=== PATIENT | male | born 1965 | race Caucasian/White ===

== ENCOUNTER 2017-09-01 05:32 | Inpatient (IN) | payer OTHER ==
[2017-09-01] VITALS (8 sets, daily range): BP systolic 131–153; BP diastolic 67–90; PULSE 83–103; TEMP 36.6–37; O2SAT 91–94; Ht 188 cm; Wt 119.3 kg
[~2017-09-01] VITALS: Ht 188 cm; Wt 119.3 kg
[~2017-09-01 05:32] MED LIST: ATEN-173 PO; BUPR-79 PO; CYCL10TA6 PO; FLUT0.15 NAE; HYDR-3983 PO; OXYC1TAB3 PO; PRLSR20 PO
[2017-09-01] MEDS ORDERED: MoRPHine SULFATE 4 MG/ML 1 ML CARP\\VIAL IV STA ×2 (05:46→07:02)
[2017-09-01] MEDS ORDERED: ONDANSETRON INJ 2 MG/ML 2 ML VIAL IV STA ×2 (05:46→09:45)
[2017-09-01] MEDS ORDERED: SODIUM CHLORIDE 0.9% 1000ML 1,000 ML IV STA ×2 (05:46)
[2017-09-01] MEDS ORDERED: OPTIRAY 320 IV PRN (06:00)
[2017-09-01 06:10] LABS: BASO % 0.2 %; BASO ABS # 0.03 K/uL (0-0.2); COMPLETE YES; EOS % 0.3 %; IG% 0.5 %; LYMPH % 11.4 %; LYMPH ABS # 2.05 K/uL (1.2-3.4); MEAN CELL VOLUME 85.9 fL (80-100); MEAN CORPUSCULAR HEMOGLOBIN 29.7 pg (25-34); MEAN CORPUSCULAR HGB CONC 34.6 g/dl (32-36); MEAN PLATELET VOLUME 9.8 fL (7.4-10.4); NEUT % 81.6 %; PLATELET COUNT 226 K/uL (130-400); RED BLOOD COUNT 5.59 M/uL (4.7-6.1); WHITE BLOOD COUNT 17.92 K/uL (4.8-10.8)
[2017-09-01 06:11] LABS: ISTAT CREATININE 0.9 mg/dl (0.6-1.3); ISTAT HEMOGLOBIN 16.7 g/dl (14.0-18.0); ISTAT IONIZED CALCIUM 1.12 mmol/l (1.12-1.32)
[2017-09-01 06:36] LABS: ALKALINE PHOSPHATASE 92 U/L (45-117); ALT/SGPT 31 U/L (12-78); BLOOD UREA NITROGEN 13 mg/dl (7-18); BUN/CREATININE RATIO 13.9 (10-20); CALCIUM 8.6 mg/dl (8.5-10.1); CARBON DIOXIDE 23 mmol/L (21-32); CHLORIDE 106 mmol/L (98-107); CREATININE 0.95 mg/dl (0.60-1.40); GLUCOSE 181 mg/dl (70-99); SODIUM 138 mmol/L (136-145)
--- NOTE | 2017-09-01 06:36 | DIAGNOSTIC IMAGING REPORT ---
CHEST ONE VIEW PORTABLE CLINICAL HISTORY: Atypical chest pain COMPARISON STUDY: 12/16/2013 FINDINGS: The heart is mildly enlarged. There is radiographic evidence of emphysema. There are right basal airspace opacities. Clinical correlation regards to a pneumonia is recommended. There is no significant pleural fluid. There is no failure.[ IMPRESSION: Right basal airspace opacities. This could represent a pneumonia. Clinical and radiographic follow-up is recommended. Electronically signed by: Riccardo Kerr M.D. 09/01/2017 6:34 AM Dictated Date/Time: 09/01/2017 6:34 AM
[2017-09-01 07:18] LABS: POTASSIUM 4.5 mmol/L (3.5-5.1)
--- NOTE | 2017-09-01 07:27 | DIAGNOSTIC IMAGING REPORT ---
CT ABD/PELVIS IV CONTRAST ONLY CLINICAL HISTORY: severe right sided abd pain COMPARISON STUDY: None. TECHNIQUE: Following the IV administration of 92 mL of Optiray-320, CT scan of the abdomen and pelvis was performed from the lung bases to the proximal femurs. Images are reviewed in the axial, sagittal, and coronal planes. IV contrast was administered without complication. A dose lowering technique was utilized adhering to the principles of ALARA. CT DOSE: 1373.16 mGy.cm FINDINGS: Lower chest: Underlying emphysema is suspected. There is bibasal atelectasis. There is subtle subpleural reticulation. There is a 6 mm subpleural right lower lobe pulmonary nodule. There are old ununited left eighth and ninth rib fractures. Liver: There is mild hepatic steatosis. There is 18 mm left lobe hypodensity likely represent a cyst. Gallbladder: Multiple gallstones are visualized. There is mild gallbladder distention. If there is clinical concern the presence of acute cholecystitis, and increments the category study could be obtained in follow-up to assess cystic duct patency. Spleen: The spleen is mildly elongated measuring 13.6 cm. Pancreas: Unremarkable. Adrenal glands: Unremarkable. Kidneys: There is a to small to characterize 6 mm left renal hypodensity likely representing a cyst. Bowel: There are no transition zones indicate bowel obstruction. There are scattered colonic diverticula. There is no acute diverticulitis. The appendix appears normal. Peritoneum: There is no intraperitoneal free air or abdominal ascites. There is small fat-containing right inguinal hernia Vasculature: The abdominal aorta is normal in course and caliber. Adenopathy: None. Pelvic viscera: The bladder, and pelvic viscera are unremarkable. Skeletal structures: No destructive osseous lesions are seen. IMPRESSION: 1. No evidence of bowel obstruction. No evidence of free air 2. No evidence of acute diverticulitis. No evidence of acute appendicitis 3. Cholelithiasis. Mild gallbladder distention. If there is clinical concern over the presence of acute cholecystitis, a nuclear medicine hepatobiliary study could be obtained in follow-up 4. Mild splenomegaly 5. Solid 6 mm subpleural right lower lobe pulmonary nodule Electronically signed by: Riccardo Kerr M.D. 09/01/2017 7:25 AM Dictated Date/Time: 09/01/2017 6:40 AM
--- NOTE | 2017-09-01 07:33 | EMERGENCY ROOM VISIT NOTE ---
History First contact with patient: 05:40 Chief Complaint: ABDOMINAL PAIN Stated Complaint: ABD PAIN History of Present Illness The patient is a 52 year old male who presents to the Emergency Room with complaints of severe right-sided abdominal pain for the past 3 hours described as severe, 9 out of 10. Patient was nausea and vomiting. Nothing makes it better or worse. Patient denies chest pain, back pain, urinary symptoms, diarrhea. Patient states because the pain he feels short of breath. No history of similar symptoms in the past. He states he has a bad gallbladder. No prior heart disease. He has had prior abdominal surgeries. No history of bowel obstruction. Review of Systems See HPI for pertinent positives & negatives. A total of 10 systems reviewed and were otherwise negative. Past Medical/Surgical History Medical Problems: (1) Allergic reaction to bee sting (2) Benign hypertension (3) GERD (gastroesophageal reflux disease) (4) Herniated disc Family History Cancer Diabetes mellitus Gallbladder disease Heart disease Hypertension Kidney disease Kidney stones Lung disease Social History Smoking Status: Current Every Day Smoker Alcohol Use: none Drug Use: none Marital Status: Housing Status: lives with family Occupation Status: retired Current/Historical Medications Scheduled Atenolol (Tenormin), 25 MG PO QAM Fluticasone Propionate (Nasal) (Flonase Allergy Relief), 2 SPRAY RENEE QAM Omeprazole (Prilosec), 20 MG PO BID Scheduled PRN Cyclobenzaprine Hcl (Flexeril), 10 MG PO TID PRN for Pain Hydrocodone/Acetaminophen 7.5MG/325MG ([place] 7.5MG/325MG), 1 TAB PO QID PRN for Pain Allergies Coded Allergies: BEE STING (Verified Allergy, Mild, 09/01/17) Physical Exam Vital Signs Date Time Temp Pulse Resp B/P (MAP) Pulse Ox O2 Delivery O2 Flow Rate FiO2 09/01/17 06:05 Room Air 09/01/17 06:05 Room Air 09/01/17 06:02 70 09/01/17 05:35 71 25 139/99 97 Room Air Physical Exam VITALS: Vitals are noted on the nurse's note and reviewed by myself. Vital signs stable. GENERAL: Pleasant male writhing in pain, nondiaphoretic, well-developed well- nourished. SKIN: The skin was without rashes, erythema, edema, or bruising. There is no tenting of the skin. Capillary reflex less than 2 seconds. HEAD: Normocephalic atraumatic. EARS: External auditory canals clear, tympanic membranes pearly hoskins without erythema or effusion bilaterally. EYES: Pupils equal round and reactive to light and accommodation. Conjunctivae without injection, sclerae without icterus. Extraocular movements intact. NOSE: Patent, turbinates without inflammation or discharge. MOUTH: Mucous membranes moist. Pharynx without erythema or exudate. Uvula midline. Airway patent. Tongue does not deviate. NECK: Supple without nuchal rigidity. No lymphadenopathy. No thyromegaly. Cervical spine is nontender. No JVD. HEART: Regular rate and rhythm without murmurs gallops or rubs. LUNGS: Clear to auscultation bilaterally without wheezes, rales or rhonchi. No dullness to percussion. No retractions or accessory muscle use. ABDOMEN: Positive bowel sounds x 4. Normal tympanic percussion. Soft, tender to palpation right side of abdomen, no CVA tenderness, without masses or organomegaly. Campbell sign negative. No guarding or rebound tenderness. MUSCULOSKELETAL: No muscle atrophy, erythema, or edema noted. NEURO: Patient was alert and oriented to person place and time. Normal sensation to light and sharp touch. No focal neurological deficits. Medical Decision & Procedures Laboratory Results 09/01/17 05:55 Red Blood Count 5.59, Mean Corpuscular Volume 85.9, Mean Corpuscular Hemoglobin 29.7, Mean Corpuscular Hemoglobin Concent 34.6, Mean Platelet Volume 9.8, Neutrophils (%) (Auto) 81.6, Lymphocytes (%) (Auto) 11.4, Monocytes (%) (Auto) 6.0, Eosinophils (%) (Auto) 0.3, Basophils (%) (Auto) 0.2, Neutrophils # (Auto) 14.62, Lymphocytes # (Auto) 2.05, Monocytes # (Auto) 1.08, Eosinophils # (Auto) 0.05, Basophils # (Auto) 0.03 09/01/17 05:55 09/01/17 06:44 Test 09/01/17 05:55 09/01/17 05:58 09/01/17 06:02 09/01/17 06:44 White Blood Count 17.92 K/uL (4.8-10.8) Red Blood Count 5.59 M/uL (4.7-6.1) Hemoglobin 16.6 g/dL (14.0-18.0) Hematocrit 48.0 % (42-52) Mean Corpuscular Volume 85.9 fL (80-100) Mean Corpuscular Hemoglobin 29.7 pg (25-34) Mean Corpuscular Hemoglobin Concent 34.6 g/dl (32-36) Platelet Count 226 K/uL (130-400) Mean Platelet Volume 9.8 fL (7.4-10.4) Neutrophils (%) (Auto) 81.6 % Lymphocytes (%) (Auto) 11.4 % Monocytes (%) (Auto) 6.0 % Eosinophils (%) (Auto) 0.3 % Basophils (%) (Auto) 0.2 % Neutrophils # (Auto) 14.62 K/uL (1.4-6.5) Lymphocytes # (Auto) 2.05 K/uL (1.2-3.4) Monocytes # (Auto) 1.08 K/uL (0.11-0.59) Eosinophils # (Auto) 0.05 K/uL (0-0.5) Basophils # (Auto) 0.03 K/uL (0-0.2) RDW Standard Deviation 41.9 fL (36.4-46.3) RDW Coefficient of Variation 13.4 % (11.5-14.5) Immature Granulocyte % (Auto) 0.5 % Immature Granulocyte # (Auto) 0.09 K/uL (0.00-0.02) Est Creatinine Clear Calc Drug Dose 122.0 ml/min Estimated GFR () 104.8 Estimated GFR (Non- 90.4 BUN/Creatinine Ratio 13.9 (10-20) Calcium Level 8.6 mg/dl (8.5-10.1) Total Bilirubin 0.3 mg/dl (0.2-1) Direct Bilirubin mg/dl (0-0.2) Aspartate Amino Transf (AST/SGOT) U/L (15-37) Alanine Aminotransferase (ALT/SGPT) 31 U/L (12-78) Alkaline Phosphatase 92 U/L (45-117) Total Protein 6.9 gm/dl (6.4-8.2) Albumin 3.5 gm/dl (3.4-5.0) Lipase 294 U/L (73-393) Bedside Hemoglobin 16.7 g/dl (14.0-18.0) Bedside Hematocrit 49 % (42-52) Bedside Sodium 137 mEq/L (135-144) Bedside Potassium 4.6 mEq/L (3.3-5.0) Bedside Chloride 104 mEq/L (101-112) Bedside Total CO2 26 mEq/l (24-31) Anion Gap 14.0 mmol/L (16-25) Bedside Blood Urea Nitrogen 16 mg/dl (7-18) Bedside Creatinine 0.9 mg/dl (0.6-1.3) Bedside Glucose (other) 190 mg/dl (70-99) Bedside Ionized Calcium (Johnathan) 1.12 mmol/l (1.12-1.32) Bedside Lactic Acid Venous 1.70 mmol/L (0.90-1.70) Chemistry Specimen Hemolysis Medications Administered Medications (Trade) Dose Ordered Sig/Huey Route Start Time Stop Time Status Last Admin Dose Admin Sodium Chloride 1,000 ml @ 999 mls/hr Q1H1M STAT IV 09/01/17 05:46 09/01/17 06:46 DC 09/01/17 05:46 999 MLS/HR Sodium Chloride 1,000 ml @ 125 mls/hr Q8H STAT IV 09/01/17 05:46 09/01/17 13:45 09/01/17 05:46 125 MLS/HR Morphine Sulfate (MoRPHine SULFATE INJ) 4 mg NOW STAT IV 09/01/17 05:46 09/01/17 05:49 DC 09/01/17 06:10 4 MG Ondansetron HCl (Zofran Inj) 4 mg NOW STAT IV 09/01/17 05:46 09/01/17 05:49 DC 09/01/17 06:10 4 MG ED Course Prior records/ancillary studies reviewed. Triage Nursing notes reviewed. Additional history obtained from family. The patient's history was concerning for abdominal pain. Differential diagnosis: Etiologies such as appendicitis, diverticulitis, PUD, biliary pathology, UTI, pancreatitis, obstruction, mesenteric ischemia, aortic pathology, infections, inflammatory bowel disease, renal colic, as well as others were entertained. Physical examination findings: As above. ER treatment provided: Morphine, Zofran, IV fluids On reassessment the patient felt better. Diagnostics interpreted by me: ECG: Normal sinus, normal intervals, no acute ST-T wave changes, rate 66. Impression normal sinus rhythm interpreted by myself The labs revealed creatinine i-STAT 0.8. Negative lactic acid. Patient was in severe pain so i-STAT orders were ordered Hyperglycemia without DKA, negative troponin 0.03 on IStat Imaging studies: CT ABD/PELVIS IV CONTRAST ONLY CLINICAL HISTORY: severe right sided abd pain COMPARISON STUDY: None. TECHNIQUE: Following the IV administration of 92 mL of Optiray-320, CT scan of the abdomen and pelvis was performed from the lung bases to the proximal femurs. Images are reviewed in the axial, sagittal, and coronal planes. IV contrast was administered without complication. A dose lowering technique was utilized adhering to the principles of ALARA. CT DOSE: 1373.16 mGy.cm FINDINGS: Lower chest: Underlying emphysema is suspected. There is bibasal atelectasis. There is subtle subpleural reticulation. There is a 6 mm subpleural right lower lobe pulmonary nodule. There are old ununited left eighth and ninth rib fractures. Liver: There is mild hepatic steatosis. There is 18 mm left lobe hypodensity likely represent a cyst. Gallbladder: Multiple gallstones are visualized. There is mild gallbladder distention. If there is clinical concern the presence of acute cholecystitis, and increments the category study could be obtained in follow-up to assess cystic duct patency. Spleen: The spleen is mildly elongated measuring 13.6 cm. Pancreas: Unremarkable. Adrenal glands: Unremarkable. Kidneys: There is a to small to characterize 6 mm left renal hypodensity likely representing a cyst. Bowel: There are no transition zones indicate bowel obstruction. There are scattered colonic diverticula. There is no acute diverticulitis. The appendix appears normal. Peritoneum: There is no intraperitoneal free air or abdominal ascites. There is small fat-containing right inguinal hernia Vasculature: The abdominal aorta is normal in course and caliber. Adenopathy: None. Pelvic viscera: The bladder, and pelvic viscera are unremarkable. Skeletal structures: No destructive osseous lesions are seen. IMPRESSION: 1. No evidence of bowel obstruction. No evidence of free air 2. No evidence of acute diverticulitis. No evidence of acute appendicitis 3. Cholelithiasis. Mild gallbladder distention. If there is clinical concern over the presence of acute cholecystitis, a nuclear medicine hepatobiliary study could be obtained in follow-up 4. Mild splenomegaly 5. Solid 6 mm subpleural right lower lobe pulmonary nodule Electronically signed by: Riccardo Kerr M.D. CHEST ONE VIEW PORTABLE CLINICAL HISTORY: Atypical chest pain COMPARISON STUDY: 12/16/2013 FINDINGS: The heart is mildly enlarged. There is radiographic evidence of emphysema. There are right basal airspace opacities. Clinical correlation regards to a pneumonia is recommended. There is no significant pleural fluid. There is no failure.[ IMPRESSION: Right basal airspace opacities. This could represent a pneumonia. Clinical and radiographic follow-up is recommended. Electronically signed by: Riccardo Kerr M.D. Case signed out to SOTO Andrade, pending US and re-eval in stable condition. Case reviewed with my attending Medical Decision As above Impression Primary Impression: Biliary colic Departure Information Referrals Ansley Leavitt M.D. (PCP) Patient Instructions My [facility]
--- NOTE | 2017-09-01 09:24 | DIAGNOSTIC IMAGING REPORT ---
ABDOMINAL ULTRASOUND, RIGHT UPPER QUADRANT HISTORY: Abdominal pain. COMPARISON: CT of the abdomen and pelvis September 01, 2017. FINDINGS: Increased hepatic echogenicity is consistent with fatty infiltration. A 2.4 cm hepatic cyst is noted. There is no biliary ductal dilatation. The pancreatic body is normal. The head and tail are obscured by overlying bowel gas. There are multiple gallstones within the gallbladder. The gallbladder is mildly distended. No gallbladder wall thickening is noted. There is no pericholecystic fluid. There is no right hydronephrosis. IMPRESSION: 1. Cholelithiasis and mild gallbladder distention. No gallbladder wall thickening or pericholecystic infiltration. If suspicion for acute cholecystitis, a hepatobiliary scan could be obtained. 2. No biliary ductal dilatation. 3. Fatty liver. Electronically signed by: Kirk Leomn M.D. 09/01/2017 9:22 AM Dictated Date/Time: 09/01/2017 9:17 AM
[2017-09-01] MEDS ORDERED: HYDROmorphone INJ 1 MG/ML SYR IV STA (09:45)
--- NOTE | 2017-09-01 11:02 | EMERGENCY ROOM VISIT NOTE ---
ED Visit Note I seems care of this patient at change of shift in sign out from RAMEZ Abraham. At that time, right upper quadrant ultrasound results were pending. Right upper quadrant ultrasound was completed and showed cholelithiasis with mild distention of the gallbladder. The patient does have a leukocytosis of greater than 17,000. He is afebrile. He was reevaluated and had persistent right upper quadrant pain and stated he was still nauseous. For this reason, I do feel the patient would benefit from admission for a HIDA scan and further evaluation. Case was discussed with [facility] hospitalist, Ansley Burton, who will evaluate the patient for admission. ABDOMINAL ULTRASOUND, RIGHT UPPER QUADRANT HISTORY: Abdominal pain. COMPARISON: CT of the abdomen and pelvis September 01, 2017. FINDINGS: Increased hepatic echogenicity is consistent with fatty infiltration. A 2.4 cm hepatic cyst is noted. There is no biliary ductal dilatation. The pancreatic body is normal. The head and tail are obscured by overlying bowel gas. There are multiple gallstones within the gallbladder. The gallbladder is mildly distended. No gallbladder wall thickening is noted. There is no pericholecystic fluid. There is no right hydronephrosis. IMPRESSION: 1. Cholelithiasis and mild gallbladder distention. No gallbladder wall thickening or pericholecystic infiltration. If suspicion for acute cholecystitis, a hepatobiliary scan could be obtained. 2. No biliary ductal dilatation. 3. Fatty liver. Electronically signed by: Kirk Lemon M.D.
[2017-09-01] MEDS ORDERED: PROMETHAZINE HCL INJ 25 MG in SODIUM CHLORIDE 0.9% 50ML 50 ML IV PRN (11:45)
[2017-09-01] MEDS ORDERED: ONDANSETRON INJ 2 MG/ML 2 ML VIAL IV PRN ×2 (11:45→15:00)
[2017-09-01] MEDS ORDERED: HYDROmorphone INJ 1 MG/ML SYR IV PRN (11:45)
--- NOTE | 2017-09-01 11:45 | History and Physical ---
History & Physical Date Sep 01, 2017. Chief Complaint RUQ pain History of Present Illness The patient is a 52 year old male with complaints of Past Medical/Surgical History Medical Problems: (1) Acute cholecystitis (2) Allergic reaction to bee sting (3) Ferreira's esophagus (4) Benign hypertension (5) Degenerative disc disease (6) GERD (gastroesophageal reflux disease) (7) Herniated disc (8) RUQ pain Surgical Problems: (1) H/O hand surgery (2) H/O left inguinal hernia repair (3) S/P tonsillectomy and adenoidectomy Additional History Hypertension: Yes Allergies Coded Allergies: BEE STING (Verified Allergy, Mild, 09/01/17) Home Medications Scheduled Atenolol (Tenormin), 25 MG PO QAM Fluticasone Propionate (Nasal) (Flonase Allergy Relief), 2 SPRAY RENEE QAM Omeprazole (Prilosec), 20 MG PO BID Scheduled PRN Cyclobenzaprine Hcl (Flexeril), 10 MG PO TID PRN for Pain Hydrocodone/Acetaminophen 7.5MG/325MG ([place] 7.5MG/325MG), 1 TAB PO QID PRN for Pain Physical Examination Skin: warm/dry Eyes: sclerae normal Head: atraumatic Neck: supple Respiratory/Chest: no respiratory distress Cardiovascular: regular rate, rhythm Abdomen / GI: + pertinent finding (distended , tender) Neurologic/Psych: alert Diagnosis acute cholecystitis Plan of Treatment admit for lap neelima, possible cholangiogram med consult
[2017-09-01 11:48] LABS: ALKALINE PHOSPHATASE 102 U/L (45-117); ALT/SGPT 32 U/L (12-78); AST/SGOT 18 U/L (15-37)
[2017-09-01] MEDS ORDERED: IV FLUIDS COMPLETED PRN (12:30)
[2017-09-01] MEDS ORDERED: ASPI-435 PO (13:05)
--- NOTE | 2017-09-01 13:13 | Medical Consult ---
Consultation Date of Consultation: Sep 01, 2017. Attending Physician: Dr Pearson Reason for Consultation: medical management History of Present Illness Pt is 52 y/o M who presented to ER with c/o moderate RUQ since 030. Pt with known hx gallstones and intermittent RUQ pain and reports approx one year ago was to have cholecystectomy however didn't have done. C/O onset nausea and vomiting at 0300 and vomited approx 3-4 times followed by dry heaves. Seen in ER and afebrile. WBC 17.9, glucose 181, normal lipase, normal total bilirubin at 0.3 and normal alk phos. Gallbladder U/S: cholelithiasis, mild gallbladder distension, no wall thickening, no biliary ductal dilation, fatty liver. He was given Zofran, Morphine, Dilaudid and NSS IV. Pain and nausea decreased but not completely resolved.Pt states last ate dinner 08/31/17, denies anything po since 299. Dr Pearson recommends cholecystectomy today. -Hx umbilical surgical repair. Hx EGD, colonoscopy 2014 - dx with Ferreira's esophagus. Takes omeprazole 20mg BID. -Hx HTN takes atenolol 25mg daily. Takes ASA 81mg daily. -Hx chronic low back pt, pt reports disc disease L1/L2. Takes hydrocodone/ acetaminophen 7.5/325mg 1 tab Q 6 hrs prn pain. Also uses Flexeril 1 tab TID prn muscle spasms. -Hx SOB, productive cough x years and probable COPD - pt states hasn't f/u with his PCP. Not on any inhalers. He has known pulmonary nodule and reports he has upcoming visit with PCP for repeat CT scan to re-evaluate. Denies fever/chills, diaphoresis, diarrhea, constipation, hematochezia, melena, hematemesis, RIVAS, dizziness, syncope, vision changes, neck pain, CP, orthopnea, palpitations, hemoptysis, sore throat, choking, otalgia, rhinorrhea, paresthesias, weakness, extremity weakness, extremity edema, rashes, urinary symptoms. Past Medical/Surgical History Medical Problems: (1) Biliary colic Status: Acute Family History Cancer MOTHER SISTER Diabetes mellitus FATHER SISTER Gallbladder disease Heart disease FATHER Hypertension FATHER SISTER Kidney disease Kidney stones Lung disease Social History Smoking Status: Current Every Day Smoker (10 cigarettes a day x 39 years) Smokeless Tobacco Use: No Alcohol Use: none Drug Use: none Marital Status: Housing Status: lives with family Occupation Status: retired Allergies Coded Allergies: BEE STING (Verified Allergy, Mild, 09/01/17) Current Inpatient Medications Current Inpatient Medications Medications (Trade) Dose Ordered Sig/Huey Route Start Time Stop Time Status Last Admin Dose Admin Sodium Chloride 1,000 ml @ 125 mls/hr Q8H STAT IV 09/01/17 05:46 09/01/17 13:45 09/01/17 05:46 125 MLS/HR Ioversol (Optiray 320) 100 ml UD PRN IV 09/01/17 06:00 09/05/17 05:59 Review of Systems See HPI for pertinent positives & negatives. A total of 10 systems reviewed and were otherwise negative. Physical Exam Date Time Temp Pulse Resp B/P (MAP) Pulse Ox O2 Delivery O2 Flow Rate FiO2 09/01/17 09:55 70 20 154/85 94 Room Air 09/01/17 07:42 36.4 64 24 147/82 95 Room Air 09/01/17 06:05 Room Air 09/01/17 06:05 Room Air 09/01/17 06:02 70 09/01/17 05:35 71 25 139/99 97 Room Air General Appearance: + obese, + pertinent finding (dishelved appearance. no acute distress currently) Head: normocephalic, atraumatic Eyes: normal inspection, PERRL, EOMI, sclerae normal ENT: TMs normal, pharynx normal Neck: supple, no adenopathy, trachea midline Respiratory/Chest: chest non-tender, no respiratory distress, no accessory muscle use, + decreased breath sounds (no rales, rhonchi or wheezing noted) Cardiovascular: regular rate, rhythm, no edema, no murmur Abdomen/GI: normal bowel sounds, soft, + tenderness (moderate tenderness to palpation to RUQ, mild to epigastric without rebound or guarding.) Extremities/Musculoskelatal: no calf tenderness, no pedal edema, normal range of motion, + pertinent finding (+hyperpigmentation bilatarel lower extremities and dorsal feet. Few scabs noted to bilateral lower extremities) Neurologic/Psych: no motor/sensory deficits, alert, oriented x 3 Skin: + pertinent finding (See extremities) Laboratory Results Last 24 Hours Test 09/01/17 05:55 09/01/17 05:58 09/01/17 06:02 09/01/17 06:08 White Blood Count 17.92 K/uL Red Blood Count 5.59 M/uL Hemoglobin 16.6 g/dL Hematocrit 48.0 % Mean Corpuscular Volume 85.9 fL Mean Corpuscular Hemoglobin 29.7 pg Mean Corpuscular Hemoglobin Concent 34.6 g/dl Platelet Count 226 K/uL Mean Platelet Volume 9.8 fL Neutrophils (%) (Auto) 81.6 % Lymphocytes (%) (Auto) 11.4 % Monocytes (%) (Auto) 6.0 % Eosinophils (%) (Auto) 0.3 % Basophils (%) (Auto) 0.2 % Neutrophils # (Auto) 14.62 K/uL Lymphocytes # (Auto) 2.05 K/uL Monocytes # (Auto) 1.08 K/uL Eosinophils # (Auto) 0.05 K/uL Basophils # (Auto) 0.03 K/uL RDW Standard Deviation 41.9 fL RDW Coefficient of Variation 13.4 % Immature Granulocyte % (Auto) 0.5 % Immature Granulocyte # (Auto) 0.09 K/uL Sodium Level 138 mmol/L Potassium Level mmol/L Chloride Level 106 mmol/L Carbon Dioxide Level 23 mmol/L Anion Gap 9.0 mmol/L 14.0 mmol/L Blood Urea Nitrogen 13 mg/dl Creatinine 0.95 mg/dl Est Creatinine Clear Calc Drug Dose 122.0 ml/min Estimated GFR () 104.8 Estimated GFR (Non- 90.4 BUN/Creatinine Ratio 13.9 Random Glucose 181 mg/dl Calcium Level 8.6 mg/dl Total Bilirubin 0.3 mg/dl Direct Bilirubin mg/dl Aspartate Amino Transf (AST/SGOT) U/L Alanine Aminotransferase (ALT/SGPT) 31 U/L Alkaline Phosphatase 92 U/L Total Protein 6.9 gm/dl Albumin 3.5 gm/dl Lipase 294 U/L Bedside Hemoglobin 16.7 g/dl Bedside Hematocrit 49 % Bedside Sodium 137 mEq/L Bedside Potassium 4.6 mEq/L Bedside Chloride 104 mEq/L Bedside Total CO2 26 mEq/l Bedside Blood Urea Nitrogen 16 mg/dl Bedside Creatinine 0.9 mg/dl Bedside Glucose (other) 190 mg/dl Bedside Ionized Calcium ([place]) 1.12 mmol/l Bedside Lactic Acid Venous 1.70 mmol/L Bedside Troponin I 0.030 ng/ml Test 09/01/17 06:44 09/01/17 10:25 Potassium Level 4.5 mmol/L Chemistry Specimen Hemolysis Assessment & Plan CHOLELITHIASIS/RUQ ABDOMINAL PAIN with elevated WBC -Dr Pearson admitting for cholecystectomy today HTN -Atenolol 25mg -Hold ASA until after cholecystectomy COLLEEN'S ESOPHAGUS/GERD -will order PPI if pt does not receive from surgeon ELEVATED BLOOD SUGAR -will add HA1C -will check BS QID and provide sliding scale if needed CHRONIC BACK PAIN -receiving pain management for cholecystectomy SOB - PROBABLE COPD -Will order prn duonebs every 4 hours prn SOB/wheezing. PULMONARY NODULE -pt currently follows out pt PCP for this and reports upcoming appointment for recheck DVT PROPHYLAXIS -defer to surgeon FULL CODE as per discussion with pt ADDENDUM: This is a 52 year old male with a PMH of HTN, tobacco use disorder, Ferreira's esophagus - presents with RUQ pain, found to have gallstones/gallbladder thickening. Vitals stable. Labs stable. s/p cholecystectomy found to have necrotic gallbladder Given IV abx. perioperatively. Monitor for pain. Monitor labs in AM
[2017-09-01] MEDS ORDERED: ALBUT/IPRATROP 3MG/0.5MG NEB 3 ML VIAL INH PRN (13:15)
[2017-09-01] MEDS ORDERED: CONRAY 60% 50 ML VIAL ONE (14:20)
[2017-09-01] MEDS ORDERED: BUPIVACAINE 0.5 % 5 MG/1 ML MPF 30ML VIAL ONE (14:20)
[2017-09-01] MEDS ORDERED: LIDOCAINE HCL 2% 2 ML VIAL (20MG/ML) ONE (14:26)
[2017-09-01] MEDS ORDERED: DEXAMETHASONE SOD INJ 4 MG/ML VIAL ONE (14:26)
[2017-09-01] MEDS ORDERED: GLYCOPYRROLATE INJ 0.2 MG/ML VIAL ONE (14:26)
[2017-09-01] MEDS ORDERED: NEOSTIGMINE METHYLSULFATE 5 MG/5 ML SYR ONE (14:26)
[2017-09-01] MEDS ORDERED: FENTANYL CITRATE INJ 50 MCG/1 ML 2 ML VIAL ONE (14:26)
[2017-09-01] MEDS ORDERED: MIDAZOLAM HCL 1 MG/ML 2ML VIAL ONE (14:26)
[2017-09-01] MEDS ORDERED: PROPOFOL IV EMULSION 10 MG/ML 20 ML VIAL IV ONE ×2 (14:26→15:28)
[2017-09-01] MEDS ORDERED: ONDANSETRON INJ 2 MG/ML 2 ML VIAL ONE (14:26)
[2017-09-01] MEDS ORDERED: ROCURONIUM BROMIDE 10 MG/ML 5 ML VIAL IV ONE (14:28)
[2017-09-01] MEDS: HYDROmorphone INJ 0.5 MG/0.5 ML SYR IV PRN ×2 (14:30→19:03)
[2017-09-01 14:48] LABS: ESTIMATED AVERAGE GLUCOSE 126 mg/dl; HA1C FLAG Normal (Normal)
[2017-09-01] MEDS ORDERED: ATROPINE SULFATE 0.1 MG/ML 5ML SYR IV PRN (15:00)
[2017-09-01] MEDS ORDERED: FENTANYL CITRATE INJ 50 MCG/1 ML 2 ML VIAL IV PRN (15:00)
[2017-09-01] MEDS ORDERED: EpHEDrine SULFATE INJ 50 MG/ML AMP IV PRN (15:00)
[2017-09-01] MEDS ORDERED: SUCCINYLCHOLINE CHLORIDE 20 MG/ML 10 ML VIAL IV ONE (15:30)
[2017-09-01] MEDS ORDERED: ALBUTEROL HFA INHALER 8.5 GM INH ONE (15:31)
[2017-09-01] MEDS ORDERED: HYDROCODONE/ACETAMOPHEN 5/325MG TAB PO PRN (15:45)
--- NOTE | 2017-09-01 16:05 | OPERATIVE REPORT ---
DATE OF OPERATION: 09/01/2017 NAME OF OPERATION: Laparoscopic cholecystectomy with drain placement. PREOPERATIVE DIAGNOSIS: Acute cholecystitis. POSTOPERATIVE DIAGNOSIS: Same with necrotizing cholecystitis. STAFF SURGEON: Dr. Will Pearson. ASSISTANTS: Justo Perez PA-C and Jamia Moore PA-C ANESTHESIA: General. DESCRIPTION OF PROCEDURE: The patient was brought into the operating room and placed on the operating table in the supine position. Pneumatic stockings, Alexandra catheter, and orogastric tube were placed. Using 0.5% plain Marcaine, all incisions were anesthetized. Incision was made above the umbilicus, carrying dissection down, identifying the fascia, placing a Veress needle and producing pneumoperitoneum. A 5-mm port was placed initially. Then, an 11-mm port placed. On inspection with the camera, the patient had omentum adherent to the anterior abdominal wall, but we were able to visualize the intra-abdominal cavity as well as the gallbladder and omentum, which the omentum was severely adherent to the gallbladder consistent with acute and chronic adhesions. Three additional ports were placed, 1 cephalad and 2 laterally under visualization. The gallbladder was grasped. The omentum was taken down. I did make a small hole in the gallbladder to aspirate the bile and then this area was grasped. The patient had large stones within the gallbladder. The gallbladder was extremely large, inflamed consistent with severe acute necrotizing cholecystitis. Dissection was carried out at the andree hepatis, identifying the cystic duct and cystic artery. These were clipped and transected. The gallbladder was dissected away from the liver bed. There was severe edema in the posterior wall. The gallbladder was placed in an Endobag. After appropriate hemostasis and irrigation, a 15 round Baltazar-Bender drain was placed through the lateral 5-mm port site into the subhepatic space, secured to the skin using 3-0 nylon suture. Using a 5-mm camera, the gallbladder was removed through the umbilical site. I did have to enlarge the fascial defect and the skin. It was apparent that the patient has a small amount of mesh at the umbilical site. After the gallbladder was removed, the fascia was closed using interrupted 0 Prolene suture and then, the subcutaneous tissue reapproximated using 2-0 plain catgut suture and then the skin reapproximated using 4-0 nylon at all sites. Dressings were applied. The Alexandra was left in place and the patient was transferred to recovery room in stable condition. I attest to the content of the Intraoperative Record and any orders documented therein. Any exception s are noted below.
--- NOTE | 2017-09-01 16:30 | Anesthesiology Progress Note ---
Anesthesia Post Op Note Date & Time Sep 01, 2017 at 16:29 Vital Signs Pain Intensity: 0 Vital Signs Past 12 Hours Date Time Temp Pulse Resp B/P (MAP) Pulse Ox O2 Delivery O2 Flow Rate FiO2 09/01/17 16:25 36.7 84 18 130/73 95 Nasal Cannula 2 09/01/17 16:15 86 16 153/91 98 Nasal Cannula 2 09/01/17 16:05 85 16 152/76 98 Oxymask 8 09/01/17 15:57 36.2 90 16 156/71 96 Oxymask 8 09/01/17 12:10 76 20 164/94 93 09/01/17 12:05 80 09/01/17 11:24 Nasal Cannula 09/01/17 11:00 76 20 155/90 93 Room Air 09/01/17 09:55 70 20 154/85 94 Room Air 09/01/17 07:42 36.4 64 24 147/82 95 Room Air 09/01/17 06:05 Room Air 09/01/17 06:05 Room Air 09/01/17 06:02 70 09/01/17 05:35 71 25 139/99 97 Room Air Notes Mental Status: alert / awake / arousable, participated in evaluation Pt Amnestic to Procedure: Yes Nausea / Vomiting: adequately controlled Pain: adequately controlled Airway Patency, RR, SpO2: stable & adequate BP & HR: stable & adequate Hydration State: stable & adequate Anesthetic Complications: no major complications apparent
[2017-09-01] MEDS: LACTATED RINGER'S 1000ML 1,000 ML IV SCH ×2 (17:13→21:10)
[2017-09-01] MEDS ORDERED: PNEUMOCOCCAL ADMINISTRATION CHARGE ONE (17:15)
[2017-09-01] MEDS ORDERED: PNEUMOCOCCAL POLYSACCHARIDES 25 MCG/0.5 ML VIAL/SYR IM. ONE (17:15)
[2017-09-01] MEDS: CEFOXITIN IV 2,000 MG in DEXTROSE 5% 50ML 50 ML IV SCH ×2 (17:51→23:48)
[2017-09-01] MEDS: HYDROCODONE/ACETAMOPHEN 5/325MG TAB PO PRN (18:03)
[2017-09-02] MEDS: HYDROmorphone INJ 0.5 MG/0.5 ML SYR IV PRN (00:07)
[2017-09-02 03:51] VITALS: BP 124/67; PULSE 94; TEMP 36.5; O2SAT 91
--- NOTE | 2017-09-02 05:51 | Surgery Progress Note ---
Surgery Progress Note Date of Service Sep 02, 2017. Subjective tolerating po vitals ok Objective Vital Signs: Date Time Temp Pulse Resp B/P (MAP) Pulse Ox O2 Delivery O2 Flow Rate FiO2 09/02/17 03:51 36.5 94 16 124/67 (86) 91 Room Air 09/01/17 23:30 Nasal Cannula 09/01/17 22:55 36.6 83 16 131/67 (88) 94 Nasal Cannula 2.0 09/01/17 19:53 37.0 103 18 144/90 (108) 91 Nasal Cannula 3.0 09/01/17 19:36 93 Nasal Cannula 2.0 09/01/17 18:47 36.7 103 20 151/84 (106) 91 Nasal Cannula 3.0 09/01/17 17:49 36.8 97 16 153/89 (110) 93 Nasal Cannula 3.0 09/01/17 17:22 36.8 88 18 151/77 (101) 92 Nasal Cannula 3.0 09/01/17 17:05 93 Nasal Cannula 2.0 09/01/17 17:00 36.6 84 16 145/72 (96) 93 Nasal Cannula 2.0 09/01/17 16:25 36.7 84 18 130/73 95 Nasal Cannula 2 09/01/17 16:15 86 16 153/91 98 Nasal Cannula 2 09/01/17 16:05 85 16 152/76 98 Oxymask 8 09/01/17 15:57 36.2 90 16 156/71 96 Oxymask 8 09/01/17 12:10 76 20 164/94 93 09/01/17 12:05 80 09/01/17 11:24 Nasal Cannula 09/01/17 11:00 76 20 155/90 93 Room Air 09/01/17 09:55 70 20 154/85 94 Room Air 09/01/17 07:42 36.4 64 24 147/82 95 Room Air 09/01/17 06:05 Room Air 09/01/17 06:05 Room Air 09/01/17 06:02 70 General Appearance: no apparent distress Respiratory/Chest: no respiratory distress Abdomen: soft Incision(s): drainage (expected) Laboratory Results: Results Past 24 Hours Test 09/01/17 05:55 09/01/17 05:58 09/01/17 06:02 09/01/17 06:08 Range/Units White Blood Count 17.92 4.8-10.8 K/uL Red Blood Count 5.59 4.7-6.1 M/uL Hemoglobin 16.6 14.0-18.0 g/dL Hematocrit 48.0 42-52 % Mean Corpuscular Volume 85.9 80-100 fL Mean Corpuscular Hemoglobin 29.7 25-34 pg Mean Corpuscular Hemoglobin Concent 34.6 32-36 g/dl Platelet Count 226 130-400 K/uL Mean Platelet Volume 9.8 7.4-10.4 fL Neutrophils (%) (Auto) 81.6 % Lymphocytes (%) (Auto) 11.4 % Monocytes (%) (Auto) 6.0 % Eosinophils (%) (Auto) 0.3 % Basophils (%) (Auto) 0.2 % Neutrophils # (Auto) 14.62 1.4-6.5 K/uL Lymphocytes # (Auto) 2.05 1.2-3.4 K/uL Monocytes # (Auto) 1.08 0.11-0.59 K/uL Eosinophils # (Auto) 0.05 0-0.5 K/uL Basophils # (Auto) 0.03 0-0.2 K/uL RDW Standard Deviation 41.9 36.4-46.3 fL RDW Coefficient of Variation 13.4 11.5-14.5 % Immature Granulocyte % (Auto) 0.5 % Immature Granulocyte # (Auto) 0.09 0.00-0.02 K/uL Sodium Level 138 136-145 mmol/L Potassium Level 3.5-5.1 mmol/L Chloride Level 106 98-107 mmol/L Carbon Dioxide Level 23 21-32 mmol/L Anion Gap 9.0 14.0 16-25 mmol/L Blood Urea Nitrogen 13 7-18 mg/dl Creatinine 0.95 0.60-1.40 mg/dl Est Creatinine Clear Calc Drug Dose 122.0 ml/min Estimated GFR () 104.8 Estimated GFR (Non- 90.4 BUN/Creatinine Ratio 13.9 10-20 Random Glucose 181 70-99 mg/dl Estimated Average Glucose 126 mg/dl Hemoglobin A1c 6.0 4.5-5.6 % Calcium Level 8.6 8.5-10.1 mg/dl Total Bilirubin 0.3 0.2-1 mg/dl Direct Bilirubin 0-0.2 mg/dl Aspartate Amino Transf (AST/SGOT) 15-37 U/L Alanine Aminotransferase (ALT/SGPT) 31 12-78 U/L Alkaline Phosphatase 92 45-117 U/L Total Protein 6.9 6.4-8.2 gm/dl Albumin 3.5 3.4-5.0 gm/dl Lipase 294 73-393 U/L Bedside Hemoglobin 16.7 14.0-18.0 g/dl Bedside Hematocrit 49 42-52 % Bedside Sodium 137 135-144 mEq/L Bedside Potassium 4.6 3.3-5.0 mEq/L Bedside Chloride 104 101-112 mEq/L Bedside Total CO2 26 24-31 mEq/l Bedside Blood Urea Nitrogen 16 7-18 mg/dl Bedside Creatinine 0.9 0.6-1.3 mg/dl Bedside Glucose (other) 190 70-99 mg/dl Bedside Ionized Calcium ([place]) 1.12 1.12-1.32 mmol/l Bedside Lactic Acid Venous 1.70 0.90-1.70 mmol/L Bedside Troponin I 0.030 0-0.045 ng/ml Test 09/01/17 06:44 09/01/17 10:25 09/02/17 04:44 09/02/17 05:00 Range/Units Potassium Level 4.5 3.5-5.1 mmol/L Chemistry Specimen Hemolysis Total Bilirubin 0.3 0.2-1 mg/dl Direct Bilirubin < 0.1 0-0.2 mg/dl Aspartate Amino Transf (AST/SGOT) 18 15-37 U/L Alanine Aminotransferase (ALT/SGPT) 32 12-78 U/L Alkaline Phosphatase 102 45-117 U/L Total Protein 6.8 6.4-8.2 gm/dl Albumin 3.7 3.4-5.0 gm/dl Hepatitis C Antibody Screen NEG NEG Microbiology Results 09/01/17 MRSA DNA Surveillance Screen - Final, Complete Specimen Negative for MRSA by DNA Probe Assessment & Plan 09/02/17- s/p lap neelima w/ drain- severe disease- acute and chronic d/c [place], adv diet, leave drain- cont IV atbx- possible d/c tomorrow if progresses
[2017-09-02 06:33] LABS: HEMATOCRIT 43.7 % (42-52); MEAN CELL VOLUME 85.9 fL (80-100); MEAN CORPUSCULAR HEMOGLOBIN 29.9 pg (25-34); MEAN CORPUSCULAR HGB CONC 34.8 g/dl (32-36); MEAN PLATELET VOLUME 9.5 fL (7.4-10.4); PLATELET COUNT 222 K/uL (130-400); RED BLOOD COUNT 5.09 M/uL (4.7-6.1); WHITE BLOOD COUNT 19.66 K/uL (4.8-10.8)
[2017-09-02] MEDS: CEFOXITIN IV 2,000 MG in DEXTROSE 5% 50ML 50 ML IV SCH ×4 (06:45→23:38)
[2017-09-02 07:05] LABS: ALT/SGPT 39 U/L (12-78); BLOOD UREA NITROGEN 12 mg/dl (7-18); BUN/CREATININE RATIO 13.7 (10-20); CALCIUM 8.3 mg/dl (8.5-10.1); CARBON DIOXIDE 28 mmol/L (21-32); CHLORIDE 104 mmol/L (98-107); CREATININE 0.87 mg/dl (0.60-1.40); GLUCOSE 152 mg/dl (70-99); MAGNESIUM 2.1 mg/dl (1.8-2.4); POTASSIUM 4.1 mmol/L (3.5-5.1); SODIUM 137 mmol/L (136-145)
[2017-09-02 07:08] LABS: ALB/GLOB RATIO 0.9 (0.9-2); ALKALINE PHOSPHATASE 86 U/L (45-117); AST/SGOT 27 U/L (15-37); PHOSPHORUS 2.6 mg/dl (2.5-4.9)
[2017-09-02] MEDS: HYDROCODONE/ACETAMOPHEN 5/325MG TAB PO PRN ×4 (07:20→23:47)
[2017-09-02 07:34] VITALS: BP 142/82; PULSE 90; TEMP 36.6; O2SAT 91
[2017-09-02] MEDS: LACTATED RINGER'S 1000ML 1,000 ML IV SCH ×2 (07:58→21:52)
[2017-09-02] MEDS ORDERED: NURSING VERBAL MED ORDER ONE (11:45)
[2017-09-02] MEDS ORDERED: PANTOprazole SOD 40 MG TAB PO ONE (12:00)
[2017-09-02] MEDS ORDERED: HYDR-5688 PO (14:22)
[2017-09-02] MEDS ORDERED: AMOX875T PO (14:22)
--- NOTE | 2017-09-02 14:24 | Discharge Instructions ---
Discharge Instructions Date of Service Sep 02, 2017. Admission Reason for Admission: Acute Cholecystitis Discharge Discharge Diagnosis / Problem: acute cholecystitis Discharge Goals Goal(s): Decrease discomfort, Improve function, Improve disease control Activity Recommendations Activity Limitations: as noted below Lifting Limitations: no more than 25 pounds Exercise/Sports Limitations: until after follow-up appointment May Resume Sexual Activity: when tolerated Shower/Bathe: tomorrow Driving or Machine Use: resume 3 days after discharge SPECIAL CARE INSTRUCTIONS: * Cover incisions and change daily for comfort/drainage. * Empty drain 2-3 times per day and record. * May use ibuprofen for pain as tolerated. * Expect some swelling and bruising. Call your doctor if: * Temperature above 101 degrees * Pain not relieved by pain medicine ordered * There is increased drainage or redness from any incision * You have any unanswered questions or concerns [phone]. FOLLOW UP VISIT: If not already scheduled, please call the office for a follow-up visit. for this Mon/ Mon- drain removal OFFICE PHONE NUMBER: Dr. Pearson Office . Current Hospital Diet Patient's current hospital diet: Regular Diet Discharge Diet Recommended Diet: Regular Diet Procedures Procedures Performed: Laparoscopic cholecystectomy. Pending Studies Studies pending at discharge: no Laboratory Results Hemoglobin A1c Test 09/01/17 05:55 Range/Units Estimated Average Glucose 126 mg/dl Hemoglobin A1c 6.0 H 4.5-5.6 % Medical Emergencies . Who to Call and When: Medical Emergencies: If at any time you feel your situation is an emergency, please call 911 immediately. . Non-Emergent Contact Non-Emergency issues call your: Primary Care Provider, Surgeon . "Provider Documentation" section prepared by Will Pearson. . VTE Core Measure Inpt VTE Proph given/why not?: Enoxaparin (Lovenox)SQ, SCD's
[2017-09-02 15:13] LABS: PARTIAL THROMBOPLASTIN RATIO 1.1; PROTHROMBIN TIME (PATIENT) 10.9 SECONDS (9.0-12.0)
[2017-09-02 15:26] VITALS: BP 126/88; PULSE 82; TEMP 37.1; O2SAT 92
--- NOTE | 2017-09-02 18:16 | Progress Note ---
Subjective Date of Service: Sep 02, 2017. Subjective Pt evaluation today including: conversation w/ patient, physical exam, lab review, review of studies, review of inpatient medication list Saw/examined the patient in room 376 No problems/issues Good PO intake pain controlled with medications Problem List Medical Problems: (1) Biliary colic Status: Acute Review of Systems Constitutional: No fever, No chills Respiratory: No cough, No sputum, No shortness of breath Cardiac: No chest pain, No edema, No palpitations Abdomen: + pain, No nausea, No vomiting, No diarrhea Medications Current Inpatient Medications Medications (Trade) Dose Ordered Sig/Huey Route Start Time Stop Time Status Last Admin Dose Admin Ioversol (Optiray 320) 100 ml UD PRN IV 09/01/17 06:00 09/05/17 05:59 Lactated Ringer's 1,000 ml @ 75 mls/hr [id number] IV 09/01/17 11:37 10/01/17 11:36 09/02/17 07:58 75 MLS/HR Cefoxitin Sodium 2000 mg/Dextrose 70 ml @ 100 mls/hr Q6H IV 09/01/17 18:00 09/11/17 17:59 09/02/17 17:56 100 MLS/HR Hydromorphone HCl (Dilaudid Inj) 0.5 mg Q3H PRN IV 09/01/17 11:45 09/15/17 11:44 09/02/17 00:07 0.5 MG Hydromorphone HCl (Dilaudid Inj) 1 mg Q3H PRN IV 09/01/17 11:45 09/15/17 11:44 Promethazine HCl 25 mg/Sodium Chloride 51 ml @ 204 mls/hr Q6H PRN IV 09/01/17 11:45 10/01/17 11:44 Ondansetron HCl (Zofran Inj) 4 mg Q6H PRN IV 09/01/17 11:45 10/01/17 11:44 Miscellaneous (Iv Fluids Completed) 1 ea PRN PRN N/A 09/01/17 12:30 09/01/18 12:29 Albuterol/ Ipratropium (Duoneb) 3 ml Q4H PRN INH 09/01/17 13:15 10/01/17 13:14 Atenolol (Tenormin Tab) 25 mg QAM PO 09/02/17 09:00 10/02/17 08:59 09/02/17 07:58 25 MG Acetaminophen/ Hydrocodone Bitart ([place] 5/325 Tab) 1 tab Q4 PRN PO 09/01/17 15:45 09/15/17 15:44 Acetaminophen/ Hydrocodone Bitart ([place] 5/325 Tab) 2 tab Q4 PRN PO 09/01/17 15:45 09/15/17 15:44 09/02/17 17:57 2 TAB Enoxaparin Sodium (Lovenox Inj) 40 mg QAM SQ 09/03/17 08:00 10/03/17 07:59 Objective Vital Signs Date Time Temp Pulse Resp B/P (MAP) Pulse Ox O2 Delivery O2 Flow Rate FiO2 09/02/17 15:26 37.1 82 18 126/88 (101) 92 Room Air 09/02/17 08:00 Room Air 09/02/17 07:34 36.6 90 19 142/82 (102) 91 Room Air 09/02/17 03:51 36.5 94 16 124/67 (86) 91 Room Air 09/01/17 23:30 Nasal Cannula 09/01/17 22:55 36.6 83 16 131/67 (88) 94 Nasal Cannula 2.0 09/01/17 19:53 37.0 103 18 144/90 (108) 91 Nasal Cannula 3.0 09/01/17 19:36 93 Nasal Cannula 2.0 09/01/17 18:47 36.7 103 20 151/84 (106) 91 Nasal Cannula 3.0 Physical Exam General Appearance: no apparent distress Respiratory/Chest: lungs clear, normal breath sounds, no respiratory distress, no accessory muscle use Cardiovascular: regular rate, rhythm, no edema, no murmur Extremities: normal inspection, no pedal edema Neurologic/Psychiatric: no motor/sensory deficits, alert, normal mood/affect Laboratory Results Last 24 Hours Test 09/02/17 06:06 09/02/17 14:54 White Blood Count 19.66 K/uL Red Blood Count 5.09 M/uL Hemoglobin 15.2 g/dL Hematocrit 43.7 % Mean Corpuscular Volume 85.9 fL Mean Corpuscular Hemoglobin 29.9 pg Mean Corpuscular Hemoglobin Concent 34.8 g/dl RDW Standard Deviation 42.0 fL RDW Coefficient of Variation 13.3 % Platelet Count 222 K/uL Mean Platelet Volume 9.5 fL Sodium Level 137 mmol/L Potassium Level 4.1 mmol/L Chloride Level 104 mmol/L Carbon Dioxide Level 28 mmol/L Anion Gap 5.0 mmol/L Blood Urea Nitrogen 12 mg/dl Creatinine 0.87 mg/dl Est Creatinine Clear Calc Drug Dose 133.3 ml/min Estimated GFR () 113.4 Estimated GFR (Non- 97.8 BUN/Creatinine Ratio 13.7 Random Glucose 152 mg/dl Calcium Level 8.3 mg/dl Phosphorus Level 2.6 mg/dl Magnesium Level 2.1 mg/dl Total Bilirubin 0.4 mg/dl Direct Bilirubin < 0.1 mg/dl Aspartate Amino Transf (AST/SGOT) 27 U/L Alanine Aminotransferase (ALT/SGPT) 39 U/L Alkaline Phosphatase 86 U/L Total Protein 6.3 gm/dl Albumin 2.9 gm/dl Globulin 3.4 gm/dl Albumin/Globulin Ratio 0.9 Prothrombin Time 10.9 SECONDS Prothromb Time International Ratio 1.0 Activated Partial Thromboplast Time 28.9 SECONDS Partial Thromboplastin Ratio 1.1 Assessment and Plan This is a 52 year old male with a PMH of HTN, tobacco use disorder, Ferreira's esophagus - presents with RUQ pain, found to have gallstones/gallbladder thickening. CHOLELITHIASIS/RUQ ABDOMINAL PAIN with elevated WBC 10/14 s/p cholecystectomy POD #1 doing well, continue pain medications bowel regimen IV abx. possible d/c in AM -Dr Pearson admitting for cholecystectomy today HTN -Atenolol 25mg -Hold ASA until after cholecystectomy COLLEEN'S ESOPHAGUS/GERD -will order PPI if pt does not receive from surgeon ELEVATED BLOOD SUGAR -will add HA1C -will check BS QID and provide sliding scale if needed CHRONIC BACK PAIN -receiving pain management for cholecystectomy SOB - PROBABLE COPD -Will order prn duonebs every 4 hours prn SOB/wheezing. PULMONARY NODULE -pt currently follows out pt PCP for this and reports upcoming appointment for recheck DVT PROPHYLAXIS -defer to surgeon FULL CODE as per discussion with pt
[2017-09-02 18:55] VITALS: BP 153/89; PULSE 85; TEMP 36.7; O2SAT 91
[2017-09-02 22:55] VITALS: BP 119/68; PULSE 86; TEMP 36.7; O2SAT 91
[2017-09-03] MEDS: CEFOXITIN IV 2,000 MG in DEXTROSE 5% 50ML 50 ML IV SCH (05:47)
[2017-09-03 06:58] LABS: HEMATOCRIT 45.6 % (42-52); MEAN CORPUSCULAR HEMOGLOBIN 29.2 pg (25-34); MEAN CORPUSCULAR HGB CONC 33.1 g/dl (32-36); MEAN PLATELET VOLUME 9.5 fL (7.4-10.4); PLATELET COUNT 193 K/uL (130-400); RED BLOOD COUNT 5.18 M/uL (4.7-6.1)
[2017-09-03 07:33] LABS: BUN/CREATININE RATIO 10.4 (10-20); CREATININE 1.5 mg/dl (0.60-1.40)
[2017-09-03 07:51] VITALS: BP 144/87; PULSE 70; TEMP 36.8; O2SAT 94
[2017-09-03] MEDS ORDERED: ENOXAPARIN 40 MG/0.4 ML SYR SQ SCH ×2 (08:00→09:00)
--- NOTE | 2017-09-03 08:14 | DISCHARGE SUMMARY ---
PRINCIPAL DIAGNOSIS: Acute necrotizing cholecystitis. PROCEDURES: The patient underwent laparoscopic cholecystectomy with drainage. HISTORY OF PRESENT ILLNESS: The patient is a 52-year-old male presenting to the Emergency Room with acute abdominal pain. On workup, was found with acute cholecystitis. HOSPITAL COURSE: The patient was taken to the operating room on 09/01/2017 where he underwent laparoscopic cholecystectomy showing severe necrotizing cholecystitis. He did have a drain placed at that time. He has done quite well, advancing in both diet and activity, and is felt stable for discharge home today, to be followed in the surgical clinic this week for drain removal.
[2017-09-03] MEDS: HYDROCODONE/ACETAMOPHEN 5/325MG TAB PO PRN (10:00)
[2017-09-03 11:00] VITALS: O2SAT 94
[2017-09-03 11:04] VITALS: BP 144/87; PULSE 70; TEMP 36.8; O2SAT 94
== END 2017-09-03 11:35 | disposition home or self-care (01) | DRG 419 ==
LOC: C.EDB 05:33 → ENRESERV 11:29 → C.MSN 11:40 → EDBEDREQ 11:56
PROVIDERS: ADMIT Family Medicine; ATTEND Family Medicine
PROC: 0FT44ZZ Resection of Gallbladder, Percutaneous Endoscopic Approach (ICD-10-PCS; principal; 2017-09-01 15:15)
DX: K80.12 Calculus of gallbladder with acute and chronic cholecystitis without obstruction (principal); R10.9 Unspecified abdominal pain; I10 Essential (primary) hypertension; K21.9 Gastro-esophageal reflux disease without esophagitis; Z83.3 Family history of diabetes mellitus; F17.210 Nicotine dependence, cigarettes, uncomplicated; K22.70 Barrett's esophagus without dysplasia; R73.9 Hyperglycemia, unspecified